=== PATIENT | female | born 2005 | race Two or more races ===

== ENCOUNTER 2025-10-06 17:08 | Emergency (ER) | payer MEDICAID, OTHER ==
[~2025-10-06] VITALS: Ht 175.3 cm; Wt 108.2 kg
--- NOTE | 2025-10-06 18:25 | ED.PDOC ---
Back pain HPI HPI Comments 19 y/o F, presents to the ED for CC of back pain since yesterday. Patient states, she has been experiencing right lumbar back pain sudden onset, last night (10/06/25). Patient reports, regular heavy lifting at work; denies any activity out of the ordinary. Patient relays, taking Naproxen at home with temporary relief of symptoms. Patient denies any new trauma, injury, or fall. No numbness, weakness of extremities. No bowel or bladder incontinence. No fevers. No other symptoms or modifying factors are present at this time. Chief Complaint: Back Pain Time Seen by MD: 18:15 Reviewed Notes: Nurses Notes, Medications, Allergies Allergies: Coded Allergies: NO KNOWN ALLERGIES (Unverified , 10/06/25) Information Source: Patient Mode of Arrival: Ambulatory Timing: Days Duration: Since onset Location of Back pain: (R) Lumbar Severity: Moderate Prehospital treatment: None Onset: Lifing History of: None Associated signs and symptoms: None Past Medical History PAST MEDICAL HISTORY: Denies Surgical History: Denies all surgeries CAMERA PERSON History: Denies all CAMERA PERSON Hx Family History Family History: Unknown Social History Smoker: Non-Smoker Alcohol: Denies ETOH Use Drugs: Denies Drug Use Lives In: Home Constitutional: denies: chills, diaphoresis, fatigue, fever, malaise, sweats, weakness, others EENTM: denies: blurred vision, double vision, ear bleeding, ear discharge, ear drainage, ear pain, ear ringing, eye pain, eye redness, hearing loss, mouth pain, mouth swelling, nasal discharge, nose bleeding, nose congestion, nose pain, photophobia, tearing, throat pain, throat swelling, voice changes, others Respiratory: denies: cough, hemoptysis, orthopnea, SOB at rest, shortness of breath, SOB with excertion, stridor, wheezing, others Cardiovascular: denies: chest pain, dizzy spells, diaphoresis, Dyspnea on exertion, edema, irregular heart beat, left arm pain, lightheadedness, palpitations, PND, syncope, others Gastrointestinal: denies: abdomen distended, abdominal pain, blood streaked bowels, constipated, diarrhea, dysphagia, difficulty swallowing, hematemesis, melena, nausea, poor appetite, poor fluid intake, rectal bleeding, rectal pain, vomiting, others Genitourinary: denies: abnormal vagina bleeding, burning, dyspareunia, dysuria, flank pain, frequency, hematuria, incontinence, pain, , vagina discharge, urgency, others Neurological: denies: dizziness, fainting, headache, left sided numbness, left sided weakness, numbness, paresthesia, pre-existing deficit, right sided numbness, right sided weakness, seizure, speech problems, tingling, tremors, weakness, others Musculoskeletal: reports: back pain; denies: gout, joint pain, joint swelling, muscle pain, muscle stiffness, neck pain, others Integumetry: denies: bruises, change in color, change in hair/nails, dryness, laceration, lesions, lumps, rash, wounds, others Allergic/Immunocompromised: denies: Difficulty Healing, Frequent Infections, Hives, Itching, others Hematologic/Lymphatic: denies: anemia, blood clots, easy bleeding, easy bruising, swollen glands, others Endocrine: denies: excessive hunger, excessive sweating, excessive thirst, excessive urination, flushing, intolerance to cold, intolerance to heat, unexplained weight gain, unexplained weight loss, others Psychiatric: denies: anxiety, bipolar disorder, depression, hopeless, panic disorder, schizophrenia, sleepless, suicidal, others All Other Systems: Reviewed and Negative Physical Exam General Appearance: No Apparent Distress, Normal HEENT: Normal ENT Inspection, Pharynx Normal Neck: Full Range of Motion, Non-Tender, Normal, Normal Inspection Respiratory: Chest Non-Tender, Lungs Clear, No Accessory Muscle Use, No Respiratory Distress, Normal Breath Sounds Cardiovascular: No Edema, No Murmur, No Gallop, Normal Peripheral Pulses, Regular Rate/Rhythm Breast Exam: Deferred Gastrointestinal: No Organomegaly, Non Tender, No Pulsatile Mass, Normal Bowel Sounds, Soft Genitalia: Deferred Pelvic: Deferred Rectal: Deferred Extremities: No calf tenderness, Normal capillary refill, Normal inspection, Normal range of motion, Non-tender, No pedal edema Musculoskeletal : Location: Right Extremity Location: Back (lower lumbar perispinal tenderness) Apperance: Normal Neurologic: Alert, clam dredger II-XII nml as Tested, No Motor Deficits, Normal Affect, Normal Mood, No Sensory Deficits Cerebellar Function: Normal Reflexes: Normal Skin: Dry, Normal Color, Warm Lymphatic: No Adenopathy Was a procedure done? Was a procedure done?: No Back Pain Differential Dx Differential Diagnosis: Musculoskeletal Pain, Other (Sciatica) X-Ray, Labs, Meds, VS Vital Signs Date Time Temp Pulse Resp B/P (MAP) Pulse Ox O2 Delivery O2 Flow Rate FiO2 10/06/25 17:10 98.1 78 18 120/75 97 98.1 Time of 1ST Reevaluation: 18:45 Reevaluation 1ST: Unchanged Patient Education/Counseling: Diagnosis, Treatment Family Education/Counseling: No Family Present SEPSIS Sepsis Screen Date sepsis recognized/suspect: Oct 06, 2025 Time Sepsis recognized/suspect: 1710 Recent Procedure: No On Antibiotic Therapy: No Respiratory Rate >20: No Heart Rate >90: No Temp<36 C (96.8 F) or >38.3 C: No SBP <90 or MAP <65 mmHG: No New Acute Mental Status Change: No Is the patient on CPAP, BIPAP,: No Vital Signs Date Time Temp Pulse Resp B/P (MAP) Pulse Ox O2 Delivery O2 Flow Rate FiO2 10/06/25 17:10 98.1 78 18 120/75 97 98.1 Departure 1 Departure Time of Disposition: 20:21 (19-year-old female with no past medical history presenting for evaluation of atraumatic lower back pain since yesterday. Ethan polanco does a lot of heavy lifting at work, suspect that this is likely the cause of her muscular back pain. Did not have any direct trauma, injury, does not require x-rays as I do not suspect underlying lumbar spine fracture. Has normal neuro/motor function, ambulating steadily here, no signs concerning for acute lumbar spine cord compromise, cauda equina. No indication for emergent MR imaging of the lumbar spine. Patient likely having muscular spasm. Offered IM Toradol, oral Tylenol, topical lidocaine patch here. At further outpatient management. Advised to take NSAIDs as needed for discomfort. Will be given a prescription for lidocaine patches and Flexeril to take in addition.) Impression: Primary Impression: Low back pain Additional Impression: Back muscle spasm Disposition: HOME / SELF CARE / HOMELESS Condition: Stable Additional Instructions: You were evaluated today for lower back pain. Please continue to take Tylenol, ibuprofen as needed for discomfort. You may take 1000 mg every 6 hours of Tylenol, do not exceed 4000 mg in a 24 hour period you may also take 600 mg of ibuprofen every 6 hours. You were given a prescription for a few days of muscle relaxant, please only take these at night as itmay make you very sleepy. You were also given a prescription for lidocaine patches to apply to your lower back. e-Prescriptions Lidocaine (LIDODERM 5% TOPICAL PATCH) 1 Patch Ph 1 PATCH TOP DAILY for 10 Days, #10 PATCH 1 Refill Prov: MILTON SHINE MD 10/06/25 Cyclobenzaprine Hcl (Cyclobenzaprine Hcl) 5 Mg Tab 1 TAB PO QPM PRN for 5 Days, #5 TAB Prov: MILTON SHINE MD 10/06/25 Discharged With: Self Critical Care Note Critical Care Time?: No Stability Stability form required: No Heart Score Heart Score: Heart Score Response (Comments) Value History N/A 0 EKG N/A 0 Age N/A 0 Risk Factors N/A 0 Troponin N/A 0 Total 0 I personally scribed for MILTON SHINE MD ([email or web address]) on 10/06/25 at 18:25. Electronically submitted by Malorie Pizarro ([email or web address]). MILTON SHINE MD Oct 06, 2025 18:25
[2025-10-06] MEDS: KETOROLAC TROMETH 60MG/2ML VIAL IM ONE (20:15)
[2025-10-06] MEDS: ACETAMINOPHEN 500 MG TAB or CAP PO ONE (20:16)
[2025-10-06] MEDS ORDERED: LIDO5DIS21 TOP (20:20)
[2025-10-06] MEDS: LIDOCAINE 5% TOPICAL PATCH TOP ONE (20:20)
[2025-10-06] MEDS ORDERED: CYCL-837 PO (20:20)
[2025-10-06 20:22] VITALS: BP 119/65; PULSE 78; RESP 17; TEMP 98.6; O2SAT 98
== END 2025-10-06 20:28 | disposition home or self-care (01) ==
LOC: ER 17:08
DX: M54.50 Low back pain, unspecified (principal); M62.830 Muscle spasm of back
CPT/HCPCS: 96372; 99283; J1885